=== PATIENT | male | born 1935 | race Caucasian/White ===

== ENCOUNTER → 2017-10-03 | Outpatient (CLI) | payer OTHER, MEDICARE ==
[~2017-10-03] MED LIST: ALEVE220 MG PO; ASPI325T6 PO; ASPIRIN 32325 MG/TAB PO; ASPIRIN E.C. 8181 MG PO; COLACE 100100 MG/CAP PO; COZAAR100 MG PO; COZAAR50 MG PO; DILTIAZEM240 M1 PO; HYGROTON25 MG PO; KLOR-CON 1010 MEQ PO; LISINOPRIL40 MG PO; MICARDIS40 MG PO; NORCO 325 MG-7.1 TAB PO; OMEPRAZOLE D/R20 MG PO; PLAVIX 75MG TAB75 MG PO; PRILOSEC 20MG20 MG PO; VITAMIN C BUFF500 MG PO
== END ==
LOC: COL.RAD 14:25
DX: M79.89 Other specified soft tissue disorders (principal)

== ENCOUNTER 2018-06-10 21:32 | Inpatient (IN) | payer OTHER, MEDICARE ==
[~2018-06-10] VITALS: Ht 175.3 cm; Wt 120.9 kg
[~2018-06-10 21:32] MED LIST changes: +PREDNISONE1 MG PO
[2018-06-10 22:17] LABS: BASO % 0.4 % (0.0-2.0); EOS # 0.2 (0.0-0.7); GRAN # 6.3 (1.4-6.5); GRAN % 65.3 % (42.2-75.2); HEMATOCRIT 44.9 % (42.0-52.0); HEMOGLOBIN 14.3 g/dl (13.5-18.0); LYMPH # 2.2 (1.2-3.4); LYMPH % 23.2 % (20.0-51.0); MEAN CELL VOLUME 89 fl (80.0-100.0); MEAN CORPUSCULAR HEMOGLOBIN 28 pg (27.0-31.0); MEAN CORPUSCULAR HGB CONC 32 g/dl (33.0-37.0); MEAN PLATELET VOLUME 9.6 fl (7.4-10.4); MONO # 0.7 (0.1-0.6); MONO % 7.7 % (1.7-9.3); PLATELET COUNT 208 K/mm3 (130-400); RED BLOOD COUNT 5.05 M/mm3 (4.20-5.60); REDCELL DISTRIBUTION WIDTH-CV 14.6 % (11.5-14.5)
[2018-06-10] MEDS ORDERED: ASPIRIN 81M81 MG/TA2 PO (22:24)
[2018-06-10] MEDS ORDERED: PREDNISONE 5MG5 MG (22:25)
[2018-06-10] MEDS ORDERED: HYGROTON 2525 MG/TAB PO ×2 (22:26→23:27)
[2018-06-10 22:30] LABS: ALBUMIN 3.5 gm/dL (3.5-5.0); BILIRUBIN,TOTAL 0.4 mg/dL (0.0-1.0); CREATININE, serum 2.75 mg/dL (0.66-1.25); POTASSIUM 4.1 mmol/L (3.4-5.0); TOTAL PROTEIN 6.4 gm/dL (6.4-8.2)
[2018-06-10] MEDS ORDERED: NEURONTIN300 MG/CAP PO (22:31)
[2018-06-10] MEDS ORDERED: PEPCID 20MG TAB20 MG PO (22:31)
[2018-06-10] MEDS ORDERED: PRAVACHOL 40MG40 MG PO (22:32)
[2018-06-10 22:56] LABS: ERYTHROCYTE SEDIMENTATION RATE 13 mm/hr (0-30)
[2018-06-11] VITALS (7 sets, daily range): BP systolic 120–163; BP diastolic 58–98; PULSE 44–102; TEMP 97.7–98.8
[2018-06-11 01:22] LABS: COLLECTION METHOD CLEAN CATCH
[2018-06-11 01:31] LABS: MUCOUS Present /lpf; PH 5 (5-8); SQUAMOUS EPITHELIAL 0-2 /hpf; URINE APPEARANCE Clear; URINE BACTERIA Rare /hpf; URINE BILIRUBIN Negative (NEGATIVE); URINE BLOOD Negative (NEGATIVE); URINE COLOR Yellow; URINE GLUCOSE Negative (NEGATIVE); URINE KETONE Negative (NEGATIVE); URINE LEUKOCYTE ESTERASE Negative (NEGATIVE); URINE NITRATE Negative (NEGATIVE); URINE PROTEIN(semi-quant) 2+ (NEGATIVE); URINE RBC 0-2 /hpf
[2018-06-11] MEDS ORDERED: ELIQUIS 2.5 PO (03:25)
[2018-06-11] MEDS ORDERED: TOPROL XL 25MG25 MG PO (03:27)
[2018-06-11] MEDS ORDERED: K-TAB10 PO (03:30)
[2018-06-11] MEDS ORDERED: CALCIUM 600 PLU1 TAB PO (03:33)
[2018-06-11 06:17] LABS: BASO % 0.5 % (0.0-2.0); EOS # 0.2 (0.0-0.7); EOS % 2.3 % (0-4.0); GRAN % 59.9 % (42.2-75.2); HEMATOCRIT 43.9 % (42.0-52.0); LYMPH # 2.3 (1.2-3.4); LYMPH % 27.9 % (20.0-51.0); MEAN CELL VOLUME 89 fl (80.0-100.0); MEAN CORPUSCULAR HEMOGLOBIN 28 pg (27.0-31.0); MEAN CORPUSCULAR HGB CONC 32 g/dl (33.0-37.0); MEAN PLATELET VOLUME 9.5 fl (7.4-10.4); MONO # 0.7 (0.1-0.6); MONO % 8.1 % (1.7-9.3); PLATELET COUNT 221 K/mm3 (130-400); RED BLOOD COUNT 4.94 M/mm3 (4.20-5.60); REDCELL DISTRIBUTION WIDTH-CV 14.4 % (11.5-14.5)
[2018-06-11 06:27] LABS: CALCIUM 8.8 mg/dL (8.4-10.2); CHOLESTEROL RISK RATIO 3.7; CREATININE, serum 1.85 mg/dL (0.66-1.25); MAGNESIUM 1.5 mg/dL (1.6-2.3); POTASSIUM 3.5 mmol/L (3.4-5.0)
[2018-06-11 06:42] LABS: INR 1.2 (0.8-3.0); PROTHROMBIN TIME 13.9 SECONDS (9.7-12.8)
[2018-06-11 18:16] LABS: CALCIUM 8.5 mg/dL (8.4-10.2); CREATININE, serum 1.43 mg/dL (0.66-1.25); POTASSIUM 3.6 mmol/L (3.4-5.0)
[2018-06-12 03:21] VITALS: BP 144/76; PULSE 101; TEMP 98.2
[2018-06-12 05:50] LABS: BASO % 0.4 % (0.0-2.0); EOS # 0.3 (0.0-0.7); EOS % 2.9 % (0-4.0); GRAN # 5.9 (1.4-6.5); GRAN % 65.1 % (42.2-75.2); HEMATOCRIT 45.2 % (42.0-52.0); HEMOGLOBIN 14.6 g/dl (13.5-18.0); LYMPH # 2.1 (1.2-3.4); LYMPH % 23.1 % (20.0-51.0); MEAN CELL VOLUME 89 fl (80.0-100.0); MEAN CORPUSCULAR HEMOGLOBIN 29 pg (27.0-31.0); MEAN CORPUSCULAR HGB CONC 32 g/dl (33.0-37.0); MEAN PLATELET VOLUME 9.7 fl (7.4-10.4); MONO # 0.7 (0.1-0.6); MONO % 7.7 % (1.7-9.3); PLATELET COUNT 222 K/mm3 (130-400); REDCELL DISTRIBUTION WIDTH-CV 14.3 % (11.5-14.5)
[2018-06-12 05:53] LABS: CALCIUM 8.3 mg/dL (8.4-10.2); CREATININE, serum 1.22 mg/dL (0.66-1.25); MAGNESIUM 1.5 mg/dL (1.6-2.3); POTASSIUM 3.7 mmol/L (3.4-5.0)
[2018-06-12 07:30] VITALS: BP 148/99; PULSE 78; TEMP 98.1
[2018-06-12 08:15] LABS: ERYTHROCYTE SEDIMENTATION RATE 13 mm/hr (0-30)
[2018-06-12 12:29] LABS: URINE 24 HOUR CREATININE 1.6 gm/24 hr (1.0-2.0)
[2018-06-12] MEDS ORDERED: ELIQUIS 5MG PO (12:33)
[2018-06-12] MEDS ORDERED: NORCO 325 MG-51 TAB PO (12:35)
[2018-06-12 12:50] VITALS: BP 130/79; PULSE 85
== END 2018-06-12 15:53 | disposition home or self-care (01) | DRG 65 ==
LOC: COL.ER 21:32 → SURG 23:23
PROVIDERS: Emergency Medicine; Family Medicine; Nurse Practitioner; Physician Assistant
DX: I63.89 Other cerebral infarction (principal); N17.9 Acute kidney failure, unspecified; H54.7 Unspecified visual loss; H53.462 Homonymous bilateral field defects, left side; I48.91 Unspecified atrial fibrillation; N18.9 Chronic kidney disease, unspecified; E78.5 Hyperlipidemia, unspecified; M31.6 Other giant cell arteritis; I12.9 Hypertensive chronic kidney disease with stage 1 through stage 4 chronic kidney disease, or unspecified chronic kidney disease; C61 Malignant neoplasm of prostate; K74.60 Unspecified cirrhosis of liver; G93.89 Other specified disorders of brain; Z96.641 Presence of right artificial hip joint
CPT/HCPCS: 99222-AI; 99239; A9585; G0378; G8978-GP; G8979-GP; J2060; J3475; J7030; J7512

== ENCOUNTER → 2018-10-03 | Outpatient (REF) ==
[~2018-10-03] MED LIST changes: +ASPIRIN 81M81 MG/TA2 PO; +CALCIUM 600 PLU1 TAB PO; +ELIQUIS 2.5 PO; +ELIQUIS 5MG PO; +HYGROTON 2525 MG/TAB PO; +K-TAB10 PO; +NEURONTIN300 MG/CAP PO; +NORCO 325 MG-51 TAB PO; +PEPCID 20MG TAB20 MG PO; +PRAVACHOL 40MG40 MG PO; +PREDNISONE 5MG5 MG; +TOPROL XL 25MG25 MG PO
== END ==
LOC: ZLAB.WCH 12:37
DX: Z01.89 Encounter for other specified special examinations (principal)

== ENCOUNTER → 2018-10-04 | Outpatient (REF) | LOC: ZLAB.WCH 09:47 | DX: Z01.89 Encounter for other specified special examinations (principal) ==

== ENCOUNTER → 2018-10-28 | Outpatient (REF) | LOC: ZLAB.WCH 12:10 | DX: Z01.89 Encounter for other specified special examinations (principal) ==